=== PATIENT | male | born 1980 | race Caucasian/White ===

== ENCOUNTER 2017-09-06 00:15 | Emergency (ER) | payer SELFPAY ==
[~2017-09-06] VITALS: Ht 172.7 cm; Wt 137.4 kg
[2017-09-06 00:29] VITALS: BP 136/96
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
--- NOTE | 2017-09-06 01:56 | NUR ---
Dr. Markham evaluating patient at bedside.
[2017-09-06] MEDS ORDERED: KETOROLAC 60 MG/2 ML VIAL IM ONE (02:05)
[2017-09-06 02:37] VITALS: BP 138/94
== END 2017-09-06 02:37 | disposition home or self-care (01) ==
LOC: MED 00:15
DX: S99.911A Unspecified injury of right ankle, initial encounter (principal); S99.921A Unspecified injury of right foot, initial encounter; W22.8XXA Striking against or struck by other objects, initial encounter; Y93.89 Activity, other specified; Y92.511 Restaurant or cafe as the place of occurrence of the external cause; Y99.8 Other external cause status
CPT/HCPCS: 73630; 96372; 99284; J1885; 29515